=== PATIENT | female | born 1970 | race Caucasian/White ===

== ENCOUNTER 2018-01-09 21:14 | Emergency (ER) | payer MEDICARE, MEDICAID ==
[~2018-01-09] VITALS: Ht 162.6 cm; Wt 136.4 kg
[2018-01-09 21:20] VITALS: Ht 162.6 cm; Wt 136.4 kg
[2018-01-09] MEDS ORDERED: PRAVACHOL40 MG PO (21:23)
[2018-01-09] MEDS ORDERED: GLUCOPHAGE1000 MG PO (21:23)
[2018-01-09] MEDS ORDERED: GLUCOTROL ER2.5 MG PO (21:24)
[2018-01-09] MEDS ORDERED: OMEPRAZOLE40 MG PO (21:24)
[2018-01-09] MEDS ORDERED: CIPRO500 MG PO (21:25)
[2018-01-09] MEDS ORDERED: PROZAC20 MG PO (21:25)
[2018-01-09] MEDS ORDERED: FLAGYL500 MG PO (21:25)
[2018-01-09] MEDS ORDERED: ZESTORETIC 20-1 EACH PO (21:26)
[2018-01-09 21:57] LABS: BASOPHILS 0.2 % (0-2); EOSINOPHILS 0.1 % (0-7); HEMATOCRIT 39.9 % (36.0-48.0); IMMATURE GRANULOCYTES 0.7 % (0-5); LYMPHOCYTES 10.6 % (15-50); MCHC 32.6 g/dL (31.0-37.0); MCV 85.8 fL (80.0-100.0); MONOCYTES 1.4 % (2-11); PLATELET COUNT 311 10x3/uL (130-400); RBC 4.65 10x6/uL (4.00-5.40); RDW 13.5 % (11.5-14.5); WBC 15.2 10x3/uL (4.8-10.8)
[2018-01-09 22:18] LABS: ALBUMIN 3.3 g/dL (3.4-5.0); BILIRUBIN - TOTAL 0.35 mg/dL (0.2-1.3); CALCIUM 9.1 mg/dL (8.5-10.1); CARBON DIOXIDE 26.7 mmol/L (21.0-32.0); CREATININE - SERUM 1.3 mg/dL (0.6-1.3); POTASSIUM - SERUM 3.7 mmol/L (3.5-5.1); PROTEIN - SERUM 7.9 g/dL (6.4-8.2)
[2018-01-09 22:50] LABS: APPEARANCE CLEAR (CLEAR); BACTERIA FEW /hpf (NONE SEEN); BILIRUBIN NEGATIVE (NEGATIVE); COLOR YELLOW (YELLOW); EPITHELIAL CELLS 0-5 /hpf (0-5); GLUCOSE NEGATIVE (NEGATIVE); KETONE MODERATE mg/dL (NEGATIVE); NITRITE NEGATIVE (NEGATIVE); PROTEIN NEGATIVE (NEGATIVE); RED CELLS - URINE OCC /hpf (0-5); SPECIFIC GRAVITY 1.015 (1.005-1.020); UROBILINOGEN NORMAL (NORMAL); WHITE CELLS - URINE 0-5 /hpf (0-5)
[2018-01-10] MEDS ORDERED: PHENERGAN25 M1 PO (00:42)
[2018-01-10] MEDS ORDERED: BENTYL 20 MG TA20 MG PO (00:42)
[2018-01-10 01:00] VITALS: BP 138/86
== END 2018-01-10 00:58 | disposition home or self-care (01) ==
LOC: D.ER 21:14
PROVIDERS: Family Medicine
DX: T37.8X5A Adverse effect of other specified systemic anti-infectives and antiparasitics, initial encounter (principal); T36.8X5A Adverse effect of other systemic antibiotics, initial encounter; Y92.019 Unspecified place in single-family (private) house as the place of occurrence of the external cause; R11.2 Nausea with vomiting, unspecified; K52.9 Noninfective gastroenteritis and colitis, unspecified; E11.9 Type 2 diabetes mellitus without complications

== ENCOUNTER 2018-02-05 15:58 | Emergency (ER) | payer MEDICARE, MEDICAID ==
[~2018-02-05] VITALS: Ht 162.6 cm; Wt 136.4 kg
[~2018-02-05 15:58] MED LIST: BENTYL 20 MG TA20 MG PO; CIPRO500 MG PO; FLAGYL500 MG PO; GLUCOPHAGE1000 MG PO; GLUCOTROL ER2.5 MG PO; OMEPRAZOLE40 MG PO; PHENERGAN25 M1 PO; PRAVACHOL40 MG PO; PROZAC20 MG PO; ZESTORETIC 20-1 EACH PO
[2018-02-05 16:00] VITALS: Ht 162.6 cm; Wt 136.4 kg
[2018-02-05 16:39] LABS: BASOPHILS 0.5 % (0-2); EOSINOPHILS 1.7 % (0-7); HEMATOCRIT 42.2 % (36.0-48.0); HEMOGLOBIN 13.6 g/dL (12-16); IMMATURE GRANULOCYTES 0.3 % (0-5); LYMPHOCYTES 21.6 % (15-50); MCH 27.9 pg (26.0-34.0); MCHC 32.2 g/dL (31.0-37.0); MCV 86.7 fL (80.0-100.0); MEAN PLATELET VOLUME 11.4 fL (7.4-10.4); MONOCYTES 8.2 % (2-11); NEUTROPHILS 67.7 % (40-80); PLATELET COUNT 349 10x3/uL (130-400); RBC 4.87 10x6/uL (4.00-5.40); RDW 13.2 % (11.5-14.5); WBC 11.1 10x3/uL (4.8-10.8)
[2018-02-05 16:57] LABS: ALBUMIN 3.3 g/dL (3.4-5.0); ANION GAP 15.8 mmol/L (8-16); BILIRUBIN - TOTAL 0.3 mg/dL (0.2-1.3); CALCIUM 9.1 mg/dL (8.5-10.1); CARBON DIOXIDE 27.3 mmol/L (21.0-32.0); POTASSIUM - SERUM 4.1 mmol/L (3.5-5.1)
[2018-02-05 18:08] LABS: APPEARANCE CLEAR (CLEAR); BILIRUBIN NEGATIVE (NEGATIVE); COLOR YELLOW (YELLOW); GLUCOSE NEGATIVE (NEGATIVE); KETONE NEGATIVE (NEGATIVE); NITRITE NEGATIVE (NEGATIVE); PROTEIN NEGATIVE (NEGATIVE); UROBILINOGEN NORMAL (NORMAL)
[2018-02-05 19:41] VITALS: BP 138/85
== END 2018-02-05 19:41 | disposition home or self-care (01) ==
LOC: D.ER 15:58
PROVIDERS: Family Medicine
DX: K52.9 Noninfective gastroenteritis and colitis, unspecified (principal); R10.84 Generalized abdominal pain; E11.9 Type 2 diabetes mellitus without complications; I10 Essential (primary) hypertension